=== PATIENT | female | born 2000 | race Caucasian/White ===

== ENCOUNTER 2023-08-25 17:46 | Emergency (ER) | payer MEDICAID, SELFPAY | END 2023-08-25 20:41 | disposition left against medical advice (07) | PROVIDERS: Emergency Provider Emergency Medicine | DX: Z53.21 Procedure and treatment not carried out due to patient leaving prior to being seen by health care provider (principal); R11.10 Vomiting, unspecified; M54.9 Dorsalgia, unspecified ==